=== PATIENT | female | born 2000 | race Caucasian/White ===

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

== ENCOUNTER 2021-08-02 11:10 | Emergency (ER) | payer OTHER ==
[~2021-08-02] VITALS: Ht 167.6 cm; Wt 90.7 kg
[~2021-08-02 11:10] MED LIST changes: +CEPHALEXIN500 M1 PO; +ELIMITE 5%60 GM T; +PREDNISONE20 M1 PO
== END 2021-08-02 12:58 | disposition left against medical advice (07) ==
LOC: ED 11:10
DX: R03.0 Elevated blood-pressure reading, without diagnosis of hypertension (principal); Z53.21 Procedure and treatment not carried out due to patient leaving prior to being seen by health care provider

== ENCOUNTER 2022-04-08 14:28 | Emergency (ER) | payer OTHER ==
[~2022-04-08] VITALS: Wt 85.3 kg
== END 2022-04-08 17:36 | disposition home or self-care (01) ==
LOC: ED 14:28
DX: S96.911A Strain of unspecified muscle and tendon at ankle and foot level, right foot, initial encounter (principal); W10.8XXA Fall (on) (from) other stairs and steps, initial encounter; Y93.89 Activity, other specified; Y92.89 Other specified places as the place of occurrence of the external cause; Y99.8 Other external cause status

== ENCOUNTER 2023-03-11 11:43 | Emergency (ER) | payer OTHER ==
[~2023-03-11] VITALS: Ht 165.1 cm; Wt 86.2 kg
[2023-03-11 13:34] LABS: BILIRUBIN Negative (Negative); BLOOD Negative (Negative); CLARITY Clear (Clear); COLOR Yellow (Yellow); GLUCOSE 3+ (Negative); KETONE Trace (Negative); LEUKO ESTERASE Negative (Negative); NITRITE Negative (Negative); SPECIFIC GRAVITY >= 1.030 (1.001-1.030)
[2023-03-11 13:54] LABS: RBC 0-2 rbc/hpf (0-2)
[2023-03-11 13:55] LABS: BACTERIA 1+
[2023-03-11] MEDS ORDERED: CYCLOBENZAPRINE5 M3 PO (14:10)
== END 2023-03-11 14:09 | disposition home or self-care (01) ==
LOC: ED 11:43
PROVIDERS: Emergency Medicine
DX: M54.50 Low back pain, unspecified (principal)

== ENCOUNTER 2023-04-12 00:03 | Emergency (ER) | payer OTHER ==
[~2023-04-12] VITALS: Ht 165.1 cm; Wt 85.7 kg
[~2023-04-12 00:03] MED LIST changes: +CYCLOBENZAPRINE5 M3 PO
[2023-04-12 00:27] LABS: BILIRUBIN Negative (Negative); BLOOD Negative (Negative); CLARITY Clear (Clear); COLOR Yellow (Yellow); GLUCOSE 3+ (Negative); KETONE Negative (Negative); NITRITE Positive (Negative); SPECIFIC GRAVITY <= 1.005 (1.001-1.030); UROBILINOGEN 0.2 E.U./dl (0.0-1.0)
[2023-04-12 00:34] LABS: URINE AMPHETAMINES Negative (1000ng/ml); URINE BARBITURATES Negative (200ng/ml); URINE BENZODIAZEPINES Negative (200ng/ml); URINE CANNABINOIDS (THC) Negative (50ng/ml); URINE COCAINE Negative (300ng/ml); URINE METHADONE Negative (300ng/ml); URINE OPIATES Negative (300ng/ml); URINE PHENCYCLIDINE Negative (25ng/ml)
[2023-04-12 00:36] LABS: BASO % 0.5 % (0.0-1.0); EOS # 0.2 10*3/uL (0.0-0.4); EOS % 1.9 % (1.0-4.0); LYMPH # 2.5 10*3/uL (1.3-4.4); LYMPH % 31.7 % (27.0-41.0); MEAN CELL VOLUME 77.7 fl (81.0-99.0); MEAN CORPUSCULAR HGB 26.5 pg (27.0-31.0); MEAN CORPUSCULAR HGB CONC 34.2 g/dl (33.0-37.0); MEAN PLATELET VOLUME 11.7 fl (9.6-12.3); MONO # 0.4 10*3/uL (0.1-1.0); MONO % 4.6 % (3.0-9.0); NEUT # 4.8 10*3/uL (2.3-7.9); PLATELET COUNT AUTOMATED 250 10*3/uL (130-400); RED BLOOD COUNT 6.18 10*6/uL (4.10-5.10); WHITE BLOOD COUNT 7.9 10*3/uL (4.8-10.8)
[2023-04-12 00:52] LABS: BACTERIA 1+; LEUKO ESTERASE Trace (Negative)
[2023-04-12 01:01] LABS: ALKALINE PHOSPHATASE 110 U/L (46-116); BUN 6 mg/dl (9-23); CHLORIDE 98 mmol/L (98-107); POTASSIUM 2.9 mmol/L (3.4-5.1); SGPT/ALT 109 U/L (10-49); TOTAL PROTEIN 7.7 gm/dL (6.0-8.0)
[2023-04-12 03:36] LABS: ABG BASE EXCESS 3.6 mmol/L (-2.0-2.0); ARTERIAL BLOOD GAS PH 7.454 (7.35-7.45); ARTERIAL BLOOD GAS PO2 76.3 (80-90)
[2023-04-12 04:26] LABS: BASO # 0.1 10*3/uL (0.0-0.1); BASO % 0.7 % (0.0-1.0); EOS # 0.1 10*3/uL (0.0-0.4); EOS % 1.7 % (1.0-4.0); LYMPH # 2.8 10*3/uL (1.3-4.4); LYMPH % 37.2 % (27.0-41.0); MEAN CELL VOLUME 77.2 fl (81.0-99.0); MEAN CORPUSCULAR HGB 26.8 pg (27.0-31.0); MEAN CORPUSCULAR HGB CONC 34.8 g/dl (33.0-37.0); MEAN PLATELET VOLUME 11.1 fl (9.6-12.3); MONO # 0.5 10*3/uL (0.1-1.0); NEUT # 4.1 10*3/uL (2.3-7.9); NEUT % 54.1 % (47.0-73.0); PLATELET COUNT AUTOMATED 230 10*3/uL (130-400); RED BLOOD COUNT 5.96 10*6/uL (4.10-5.10); RED CELL DISTRI WIDTH 12.1 % (0-14.5); WHITE BLOOD COUNT 7.5 10*3/uL (4.8-10.8)
[2023-04-12 05:00] LABS: ALKALINE PHOSPHATASE 102 U/L (46-116); CHLORIDE 101 mmol/L (98-107); POTASSIUM 3.3 mmol/L (3.4-5.1); SGPT/ALT 97 U/L (10-49); TOTAL PROTEIN 7.4 gm/dL (6.0-8.0)
[2023-04-12 05:10] LABS: BUN < 5 mg/dl (9-23)
== END 2023-04-12 11:43 | disposition short-term general hospital (02) ==
LOC: ED 00:03
PROVIDERS: Emergency Medicine
DX: A41.9 Sepsis, unspecified organism (principal); T48.1X2A Poisoning by skeletal muscle relaxants [neuromuscular blocking agents], intentional self-harm, initial encounter; R74.01 Elevation of levels of liver transaminase levels; R73.9 Hyperglycemia, unspecified; E87.6 Hypokalemia; E87.20 Acidosis, unspecified; N39.0 Urinary tract infection, site not specified; B95.2 Enterococcus as the cause of diseases classified elsewhere; Z79.899 Other long term (current) drug therapy; Y92.89 Other specified places as the place of occurrence of the external cause

== ENCOUNTER 2023-06-16 22:31 | Emergency (ER) | payer OTHER ==
[~2023-06-16] VITALS: Ht 165.1 cm; Wt 81.6 kg
[2023-06-16] MEDS ORDERED: METFORMIN HCL500 M2 PO (23:17)
[2023-06-16] MEDS ORDERED: SERTRALINE HYDR25 MG PO (23:18)
[2023-06-16] MEDS ORDERED: ZESTORETIC 10-1 EACH PO (23:18)
[2023-06-16] MEDS ORDERED: TRAZODONE50 MG PO (23:19)
[2023-06-16] MEDS ORDERED: ROSUVASTATIN CA10 MG PO (23:37)
[2023-06-16] MEDS ORDERED: HYDROXYZINE PAM50 MG PO (23:37)
[2023-06-16] MEDS ORDERED: LISINOPRIL10 M1 PO (23:37)
[2023-06-16] MEDS ORDERED: SERTRALINE HYDR50 MG PO (23:38)
[2023-06-16] MEDS ORDERED: MINIPRESS1 MG PO (23:39)
[2023-06-17 00:56] LABS: BILIRUBIN Negative (Negative); BLOOD Negative (Negative); CLARITY Clear (Clear); COLOR Yellow (Yellow); GLUCOSE 3+ (Negative); KETONE Trace (Negative); LEUKO ESTERASE Trace (Negative); NITRITE Negative (Negative)
[2023-06-17 01:04] LABS: BASO # 0.1 10*3/uL (0.0-0.1); BASO % 0.6 % (0.0-1.0); EOS # 0.3 10*3/uL (0.0-0.4); EOS % 3.3 % (1.0-4.0); LYMPH # 2.5 10*3/uL (1.3-4.4); LYMPH % 27.8 % (27.0-41.0); MEAN CELL VOLUME 78.2 fl (81.0-99.0); MEAN CORPUSCULAR HGB CONC 34.5 g/dl (33.0-37.0); MEAN PLATELET VOLUME 11.8 fl (9.6-12.3); MONO # 0.4 10*3/uL (0.1-1.0); MONO % 3.9 % (3.0-9.0); NEUT # 5.8 10*3/uL (2.3-7.9); NEUT % 63.8 % (47.0-73.0); PLATELET COUNT AUTOMATED 214 10*3/uL (130-400); RED BLOOD COUNT 5.37 10*6/uL (4.10-5.10); RED CELL DISTRI WIDTH 12.2 % (0-14.5); WHITE BLOOD COUNT 9.1 10*3/uL (4.8-10.8)
[2023-06-17 01:07] LABS: BACTERIA 1+; EPITHELIAL CELLS 41-50
[2023-06-17 01:24] LABS: ALKALINE PHOSPHATASE 79 U/L (46-116); BUN 12 mg/dl (9-23); CHLORIDE 102 mmol/L (98-107); POTASSIUM 3.8 mmol/L (3.4-5.1); SGPT/ALT 54 U/L (10-49)
== END 2023-06-17 02:20 | disposition home or self-care (01) ==
LOC: ED 22:31
PROVIDERS: Emergency Medicine
DX: R73.9 Hyperglycemia, unspecified (principal); R06.02 Shortness of breath; Z79.899 Other long term (current) drug therapy

== ENCOUNTER 2023-06-24 00:11 | Emergency (ER) | payer OTHER ==
[~2023-06-24] VITALS: Ht 165.1 cm; Wt 81.6 kg
[~2023-06-24 00:11] MED LIST changes: +HYDROXYZINE PAM50 MG PO; +LISINOPRIL10 M1 PO; +METFORMIN HCL500 M2 PO; +MINIPRESS1 MG PO; +ROSUVASTATIN CA10 MG PO; +SERTRALINE HYDR25 MG PO; +SERTRALINE HYDR50 MG PO; +TRAZODONE50 MG PO; +ZESTORETIC 10-1 EACH PO
[2023-06-24 00:57] LABS: BILIRUBIN Negative (Negative); BLOOD Negative (Negative); CLARITY Clear (Clear); COLOR Yellow (Yellow); GLUCOSE 3+ (Negative); KETONE Negative (Negative); LEUKO ESTERASE Negative (Negative); NITRITE Negative (Negative); PH 5.5 (4.5-8.0); SPECIFIC GRAVITY >= 1.030 (1.001-1.030); UROBILINOGEN 0.2 E.U./dl (0.0-1.0)
[2023-06-24 01:03] LABS: BASO # 0.1 10*3/uL (0.0-0.1); BASO % 0.7 % (0.0-1.0); EOS # 0.2 10*3/uL (0.0-0.4); EOS % 3.1 % (1.0-4.0); HEMATOCRIT 40.6 % (37.0-47.0); LYMPH # 2.2 10*3/uL (1.3-4.4); LYMPH % 29.8 % (27.0-41.0); MEAN CELL VOLUME 78.4 fl (81.0-99.0); MEAN CORPUSCULAR HGB 27.6 pg (27.0-31.0); MEAN CORPUSCULAR HGB CONC 35.2 g/dl (33.0-37.0); MEAN PLATELET VOLUME 12.1 fl (9.6-12.3); MONO # 0.4 10*3/uL (0.1-1.0); MONO % 5.3 % (3.0-9.0); NEUT # 4.4 10*3/uL (2.3-7.9); NEUT % 59.7 % (47.0-73.0); PLATELET COUNT AUTOMATED 189 10*3/uL (130-400); RED BLOOD COUNT 5.18 10*6/uL (4.10-5.10); RED CELL DISTRI WIDTH 12.6 % (0-14.5); WHITE BLOOD COUNT 7.3 10*3/uL (4.8-10.8)
[2023-06-24 01:06] LABS: URINE AMPHETAMINES Negative (1000ng/ml); URINE BARBITURATES Negative (200ng/ml); URINE BENZODIAZEPINES Negative (200ng/ml); URINE CANNABINOIDS (THC) Negative (50ng/ml); URINE COCAINE Negative (300ng/ml); URINE METHADONE Negative (300ng/ml); URINE OPIATES Negative (300ng/ml); URINE PHENCYCLIDINE Negative (25ng/ml)
[2023-06-24 01:15] LABS: ACT PARTIAL THROMBO TIME 26.5 SECONDS (20.0-32.1); INTERNATIONAL NORM RATIO 0.9 (2.0-3.5)
[2023-06-24 01:35] LABS: ALKALINE PHOSPHATASE 127 U/L (46-116); BUN 7 mg/dl (9-23); CHLORIDE 102 mmol/L (98-107); LIPASE 39 U/L (12-53); SGPT/ALT 56 U/L (10-49); TOTAL PROTEIN 7.2 gm/dL (6.0-8.0)
[2023-06-24 01:42] LABS: ETHYL ALCOHOL < 3.0 mg/dl (<3)
[2023-06-24 02:02] LABS: WBC 0-2 wbc/hpf (0-5)
== END 2023-06-24 03:00 | disposition home or self-care (01) ==
LOC: ED 00:11
PROVIDERS: Internal Medicine
DX: S09.90XA Unspecified injury of head, initial encounter (principal); E11.65 Type 2 diabetes mellitus with hyperglycemia; I10 Essential (primary) hypertension; Z79.899 Other long term (current) drug therapy; W22.8XXA Striking against or struck by other objects, initial encounter; Y93.89 Activity, other specified; Y92.009 Unspecified place in unspecified non-institutional (private) residence as the place of occurrence of the external cause; Y99.8 Other external cause status

== ENCOUNTER → 2023-08-14 | Outpatient (CLI) | payer OTHER | END | disposition home or self-care (01) | LOC: US 15:50 | PROVIDERS: ATTEND Nurse Practitioner Women's Health | DX: Z32.01 Encounter for pregnancy test, result positive (principal); Z3A.10 10 weeks gestation of pregnancy ==

== ENCOUNTER 2023-08-18 03:05 | Emergency (ER) | payer OTHER ==
[~2023-08-18] VITALS: Ht 165.1 cm; Wt 82.6 kg
[2023-08-18] MEDS ORDERED: SERTRALINE HYD100 MG PO (03:20)
[2023-08-18] MEDS ORDERED: LURASIDONE HCL20 MG PO (03:20)
[2023-08-18] MEDS ORDERED: PRENATAL VITAM1 EAC7 PO (03:22)
[2023-08-18 03:50] LABS: BASO % 0.2 % (0.0-1.0); EOS # 0.1 10*3/uL (0.0-0.4); HEMATOCRIT 43.2 % (37.0-47.0); LYMPH % 24.5 % (27.0-41.0); MEAN CELL VOLUME 78.3 fl (81.0-99.0); MEAN CORPUSCULAR HGB 27.7 pg (27.0-31.0); MEAN CORPUSCULAR HGB CONC 35.4 g/dl (33.0-37.0); MEAN PLATELET VOLUME 11.6 fl (9.6-12.3); MONO # 0.4 10*3/uL (0.1-1.0); MONO % 4.6 % (3.0-9.0); NEUT # 5.6 10*3/uL (2.3-7.9); NEUT % 69.5 % (47.0-73.0); PLATELET COUNT AUTOMATED 208 10*3/uL (130-400); RED BLOOD COUNT 5.52 10*6/uL (4.10-5.10); RED CELL DISTRI WIDTH 12.2 % (0-14.5); WHITE BLOOD COUNT 8.1 10*3/uL (4.8-10.8)
[2023-08-18 04:18] LABS: ALKALINE PHOSPHATASE 50 U/L (46-116); BUN 6 mg/dl (9-23); CHLORIDE 105 mmol/L (98-107); POTASSIUM 3.5 mmol/L (3.4-5.1); SGPT/ALT 29 U/L (10-49); TOTAL PROTEIN 7.2 gm/dL (6.0-8.0)
[2023-08-18 04:54] LABS: BILIRUBIN Negative (Negative); BLOOD Trace-Lysed (Negative); CLARITY Cloudy (Clear); COLOR Dark Yellow (Yellow); GLUCOSE 2+ (Negative); KETONE 3+ (Negative); LEUKO ESTERASE 2+ (Negative); NITRITE Negative (Negative); SPECIFIC GRAVITY 1.025 (1.001-1.030)
[2023-08-18 05:02] LABS: BACTERIA 1+; MUCOUS 1+; WBC 31-40 wbc/hpf (0-5)
[2023-08-18] MEDS ORDERED: AMOX-CLAV 875-1 EACH PO (05:25)
== END 2023-08-18 05:42 | disposition home or self-care (01) ==
LOC: ED 03:05
PROVIDERS: Internal Medicine
DX: O23.41 Unspecified infection of urinary tract in pregnancy, first trimester (principal); N39.0 Urinary tract infection, site not specified; Z3A.10 10 weeks gestation of pregnancy; R53.1 Weakness; I10 Essential (primary) hypertension

== ENCOUNTER 2023-09-16 16:25 | Emergency (ER) | payer OTHER ==
[~2023-09-16] VITALS: Ht 165.1 cm; Wt 82.6 kg
[~2023-09-16 16:25] MED LIST changes: +AMOX-CLAV 875-1 EACH PO; +LURASIDONE HCL20 MG PO; +PRENATAL VITAM1 EAC7 PO; +SERTRALINE HYD100 MG PO
[2023-09-16 17:05] LABS: BASO % 0.1 % (0.0-1.0); EOS % 0.5 % (1.0-4.0); HEMATOCRIT 40.5 % (37.0-47.0); LYMPH # 1.4 10*3/uL (1.3-4.4); LYMPH % 18.1 % (27.0-41.0); MEAN CELL VOLUME 79.1 fl (81.0-99.0); MEAN CORPUSCULAR HGB 27.7 pg (27.0-31.0); MEAN CORPUSCULAR HGB CONC 35.1 g/dl (33.0-37.0); MEAN PLATELET VOLUME 11.7 fl (9.6-12.3); MONO # 0.3 10*3/uL (0.1-1.0); MONO % 4.4 % (3.0-9.0); NEUT # 5.7 10*3/uL (2.3-7.9); NEUT % 76.6 % (47.0-73.0); PLATELET COUNT AUTOMATED 177 10*3/uL (130-400); RED BLOOD COUNT 5.12 10*6/uL (4.10-5.10); RED CELL DISTRI WIDTH 12.4 % (0-14.5); WHITE BLOOD COUNT 7.5 10*3/uL (4.8-10.8)
[2023-09-16 17:38] LABS: ALKALINE PHOSPHATASE 49 U/L (46-116); CHLORIDE 106 mmol/L (98-107); LIPASE 29 U/L (12-53); POTASSIUM 3.7 mmol/L (3.4-5.1); SGPT/ALT 24 U/L (5-49)
[2023-09-16 17:39] LABS: BUN < 5 mg/dl (9-23)
[2023-09-16 17:44] LABS: BILIRUBIN 1+ (Negative); BLOOD Negative (Negative); CLARITY Cloudy (Clear); COLOR Dark Yellow (Yellow); GLUCOSE Negative (Negative); KETONE 1+ (Negative); LEUKO ESTERASE 1+ (Negative); NITRITE Negative (Negative); PH 5.5 (4.5-8.0); SPECIFIC GRAVITY 1.025 (1.001-1.030)
[2023-09-16 18:18] LABS: BACTERIA 2+; MUCOUS 2+
[2023-09-16] MEDS ORDERED: AMOX-CLAV 875-1 EACH PO (18:36)
== END 2023-09-16 18:48 | disposition home or self-care (01) ==
LOC: ED 16:25
PROVIDERS: Emergency Medicine
DX: O23.42 Unspecified infection of urinary tract in pregnancy, second trimester (principal); N39.0 Urinary tract infection, site not specified; O21.9 Vomiting of pregnancy, unspecified; I10 Essential (primary) hypertension; Z3A.15 15 weeks gestation of pregnancy

== ENCOUNTER 2023-09-20 18:05 | Emergency (ER) | payer OTHER ==
[~2023-09-20] VITALS: Ht 165.1 cm; Wt 82.6 kg
== END 2023-09-20 21:08 | disposition home or self-care (01) ==
LOC: ED 18:05
DX: O26.892 Other specified pregnancy related conditions, second trimester (principal); K59.00 Constipation, unspecified; I10 Essential (primary) hypertension; Z3A.15 15 weeks gestation of pregnancy

== ENCOUNTER 2023-10-24 16:27 | Emergency (ER) | payer OTHER ==
[2023-10-24] MEDS ORDERED: PENICILLIN-VK500 MG PO (17:17)
== END 2023-10-24 17:07 | disposition home or self-care (01) ==
LOC: ED 16:27
DX: O26.892 Other specified pregnancy related conditions, second trimester (principal); K08.89 Other specified disorders of teeth and supporting structures; H92.09 Otalgia, unspecified ear; Z3A.20 20 weeks gestation of pregnancy

== ENCOUNTER 2023-12-04 15:19 | Emergency (ER) | payer OTHER ==
[~2023-12-04] VITALS: Ht 162.5 cm; Wt 82.6 kg
[~2023-12-04 15:19] MED LIST changes: +PENICILLIN-VK500 MG PO
[2023-12-04] MEDS ORDERED: AVPAK AZITHROM250 M1 PO (16:02)
== END 2023-12-04 16:05 | disposition home or self-care (01) ==
LOC: ED 15:19
DX: O99.512 Diseases of the respiratory system complicating pregnancy, second trimester (principal); J32.9 Chronic sinusitis, unspecified; Z88.0 Allergy status to penicillin; Z79.899 Other long term (current) drug therapy; Z3A.26 26 weeks gestation of pregnancy

== ENCOUNTER 2024-03-19 08:51 | Emergency (ER) | payer OTHER ==
[~2024-03-19] VITALS: Ht 165.1 cm; Wt 85.7 kg
[~2024-03-19 08:51] MED LIST changes: +AVPAK AZITHROM250 M1 PO
[2024-03-19] MEDS ORDERED: LANTUS SOL100 UNIT/1 SC (09:27)
[2024-03-19] MEDS ORDERED: NIFEDIPINE ER90 M1 PO (09:28)
[2024-03-19 09:58] LABS: BASO % 0.6 % (0.0-1.0); EOS # 0.3 10*3/uL (0.0-0.4); HEMATOCRIT 37.9 % (37.0-47.0); LYMPH # 1.8 10*3/uL (1.3-4.4); LYMPH % 33.4 % (27.0-41.0); MEAN CELL VOLUME 78.8 fl (81.0-99.0); MEAN CORPUSCULAR HGB 24.9 pg (27.0-31.0); MEAN CORPUSCULAR HGB CONC 31.7 g/dl (33.0-37.0); MEAN PLATELET VOLUME 11.5 fl (9.6-12.3); MONO # 0.3 10*3/uL (0.1-1.0); MONO % 4.9 % (3.0-9.0); NEUT % 55.7 % (47.0-73.0); PLATELET COUNT AUTOMATED 230 10*3/uL (130-400); RED BLOOD COUNT 4.81 10*6/uL (4.10-5.10); RED CELL DISTRI WIDTH 13.4 % (0-14.5); WHITE BLOOD COUNT 5.4 10*3/uL (4.8-10.8)
[2024-03-19 10:08] LABS: ACT PARTIAL THROMBO TIME 25.6 SECONDS (20.0-32.1)
[2024-03-19 10:19] LABS: ALKALINE PHOSPHATASE 104 U/L (46-116); BUN 12 mg/dl (9-23); CHLORIDE 105 mmol/L (98-107); POTASSIUM 3.7 mmol/L (3.4-5.1); SGPT/ALT 27 U/L (5-49)
[2024-03-19] MEDS ORDERED: NYSTATIN CREAM15 GM T (10:39)
== END 2024-03-19 10:49 | disposition home or self-care (01) ==
LOC: ED 08:51
PROVIDERS: Internal Medicine
DX: B36.9 Superficial mycosis, unspecified (principal); I10 Essential (primary) hypertension

== ENCOUNTER 2024-10-25 14:54 | Emergency (ER) | payer OTHER ==
[~2024-10-25] VITALS: Ht 165.1 cm; Wt 87.2 kg
[~2024-10-25 14:54] MED LIST changes: +LANTUS SOL100 UNIT/1 SC; +NIFEDIPINE ER90 M1 PO; +NYSTATIN CREAM15 GM T
[2024-10-25] MEDS ORDERED: Ketorolac Tromethamine 30 MG/ML VIAL IV ONE (15:15)
[2024-10-25] MEDS ORDERED: diphenhydrAMINE hydrochloride 50 MG/ML VIAL IV ONE (15:15)
[2024-10-25] MEDS ORDERED: Dexamethasone Sodium Phospha 20 MG/5 ML VIAL IV ONE (15:15)
[2024-10-25] MEDS ORDERED: SODIUM CHLORIDE 0.9% 1,000 ML IV ONE (15:15)
[2024-10-25] MEDS ORDERED: Metoclopramide Hydrochloride 10 MG/2 ML VIAL IV ONE (15:15)
[2024-10-25] MEDS ORDERED: Labetalol Hydrochloride 20 MG/4 ML SYR IV ONE (15:25)
== END 2024-10-25 16:17 | disposition home or self-care (01) ==
LOC: ED 14:54
DX: G43.909 Migraine, unspecified, not intractable, without status migrainosus (principal); I10 Essential (primary) hypertension; E11.9 Type 2 diabetes mellitus without complications; Z79.4 Long term (current) use of insulin; Z79.84 Long term (current) use of oral hypoglycemic drugs; Z79.899 Other long term (current) drug therapy

== ENCOUNTER 2025-05-08 13:57 | Emergency (ER) | payer OTHER ==
[~2025-05-08] VITALS: Ht 165.1 cm; Wt 81.6 kg
== END 2025-05-08 18:13 | disposition home or self-care (01) ==
LOC: ED 13:57
DX: S93.601A Unspecified sprain of right foot, initial encounter (principal); I10 Essential (primary) hypertension; F32.A Depression, unspecified; E11.9 Type 2 diabetes mellitus without complications; Z79.4 Long term (current) use of insulin; Z79.899 Other long term (current) drug therapy; W17.2XXA Fall into hole, initial encounter; Y93.89 Activity, other specified; Y92.89 Other specified places as the place of occurrence of the external cause; Y99.8 Other external cause status

== ENCOUNTER 2025-05-12 01:10 | Emergency (ER) | payer OTHER ==
[~2025-05-12] VITALS: Ht 165.1 cm; Wt 81.6 kg
[2025-05-12 02:43] LABS: BILIRUBIN Negative (Negative); BLOOD Negative (Negative); CLARITY Cloudy (Clear); COLOR Yellow (Yellow); KETONE Trace (Negative); LEUKO ESTERASE 1+ (Negative); NITRITE Negative (Negative); PH 7.0 (4.5-8.0); SPECIFIC GRAVITY 1.020 (1.001-1.030); UROBILINOGEN 1.0 E.U./dl (0.0-1.0)
[2025-05-12 02:58] LABS: BASO # 0.0 10*3/uL (0.0-0.1); BASO % 0.3 % (0.0-1.0); EOS # 0.1 10*3/uL (0.0-0.4); EOS % 1.3 % (1.0-4.0); MEAN CELL VOLUME 82.7 fl (81.0-99.0); MEAN CORPUSCULAR HGB 26.7 pg (27.0-31.0); MEAN PLATELET VOLUME 11.7 fl (9.6-12.3); MONO # 0.3 10*3/uL (0.1-1.0); MONO % 4.0 % (3.0-9.0); NEUT # 5.6 10*3/uL (2.3-7.9); NEUT % 72.0 % (47.0-73.0); NUCLEATED RED BLOOD CELL 0.0 % (0.0-0.0); NUCLEATED RED BLOOD CELL 0.0 10*3/uL (0.0-0.0); PLATELET COUNT AUTOMATED 177 10*3/uL (130-400); RED CELL DISTRI WIDTH 13.3 % (0-14.5)
[2025-05-12 03:13] LABS: BACTERIA 3+; EPITHELIAL CELLS TNTC; WBC 16-20 wbc/hpf (0-5)
[2025-05-12 03:21] LABS: BUN 7 mg/dl (9-23)
[2025-05-12] MEDS ORDERED: ACETAMINOPHEN 325 MG TAB PO ONE (06:35)
[2025-05-12] MEDS ORDERED: Amoxicillin/Clavulanate Pota 875 MG TAB PO ONE (08:20)
[2025-05-12] MEDS ORDERED: POTASSIUM CHLORIDE 20 MEQ TAB PO ONE (08:20)
[2025-05-12] MEDS ORDERED: AMOX-CLAV 875-1 EACH PO (08:21)
[2025-05-12] MEDS ORDERED: Amoxicillin/Clavulanate Pota 875 MG TAB ONE (08:58)
[2025-05-12] MEDS ORDERED: POTASSIUM CHLORIDE 20 MEQ TAB ONE (08:58)
== END 2025-05-12 08:50 | disposition home or self-care (01) ==
LOC: ED 01:10
PROVIDERS: Emergency Medicine
DX: O9A.212 Injury, poisoning and certain other consequences of external causes complicating pregnancy, second trimester (principal); S93.601A Unspecified sprain of right foot, initial encounter; O46.92 Antepartum hemorrhage, unspecified, second trimester; O23.42 Unspecified infection of urinary tract in pregnancy, second trimester; N39.0 Urinary tract infection, site not specified; Z79.84 Long term (current) use of oral hypoglycemic drugs; Z79.4 Long term (current) use of insulin; Z3A.24 24 weeks gestation of pregnancy; W18.39XA Other fall on same level, initial encounter; Y93.89 Activity, other specified; Y92.89 Other specified places as the place of occurrence of the external cause; Y99.8 Other external cause status